=== PATIENT | female | born 1980 | race Caucasian/White ===

== ENCOUNTER 2020-12-04 10:47 | Emergency (ER) | payer BC ==
--- NOTE | 2020-12-04 11:18 | ERPHSYRPT ---
- History of Present Illness Time Seen by Provider: 12/04/20 11:18 Source: patient Exam Limitations: no limitations Physician History: This is a 40-year-old white female who has a history of vertigo and was at a vendor fair at 9 AM this morning. She began with some dizziness and then there was confusion and some slurred speech present. Slurred speech resolved but she presents to the emergency room with a headache and dizziness which is much less intense. Patient does see a neurologist in [facility] by the name of Dr. Lebron. An MRI of the brain with and without contrast was performed on 11/10/2020 and it was unremarkable. Patient denies chest pain. She denies shortness of breath. She denies nausea vomiting or diarrhea. She has never had this severe symptoms with her vertigo episodes. However, she does state that her episodes of vertigo have been increasing in frequency. Patient is not under any new stressors. She has no cough she has no shortness of breath. Her her slurred speech symptoms and confusion have resolved prior to arrival to the emergency department. Patient denies head injury Timing/Duration: today Severity: moderate Baseline/Normal Cognition: alert oriented x 3 Current Cognition: alert oriented x 3 Baseline Gait: walks w/o assistance Associated Symptoms: confusion, slurred speech, headache Allergies/Adverse Reactions: No Known Drug Allergies Allergy (Unverified 12/04/20 11:12) Home Medications: Multivitamin 1 tab PO DAILY 12/04/20 [History] Travel Risk - International Travel Have you traveled outside of the country in past 3 weeks: No - Coronavirus Screening Are you exhibiting any of the following symptoms?: No Close contact with a COVID-19 positive Pt in past 14-21 Days: No - Vaccine Status Have you recieved a Covid-19 vaccination: No - Review of Systems Constitutional: No Symptoms Eyes: No Symptoms Ears, Nose, & Throat: No Symptoms Respiratory: No Symptoms Cardiac: No Symptoms Abdominal/Gastrointestinal: No Symptoms Genitourinary Symptoms: No Symptoms Musculoskeletal: No Symptoms Skin: No Symptoms Neurological: Dizziness, Headache, Speech Changes Psychological: No Symptoms Endocrine: No Symptoms Hematologic/Lymphatic: No Symptoms Immunological/Allergic: No Symptoms All Other Systems: Reviewed and Negative - Past Medical History Pertinent Past Medical History: Yes Neurological History: Other (Recurrent vertigo) - Past Surgical History Past Surgical History: Yes - Nursing Vital Signs Nursing Vital Signs: Initial Vital Signs Temperature 98.0 F 12/04/20 11:15 Pulse Rate 78 12/04/20 11:15 Respiratory Rate 18 12/04/20 11:15 Blood Pressure 150/91 12/04/20 11:15 O2 Sat by Pulse Oximetry 100 12/04/20 11:15 Pain Scale Pain Intensity 4 - Wood Coma Scale Best Eye Response (Wood): (4) open spontaneously Best Verbal Response ([place]): (5) oriented Best Motor Response (Wood): (6) obeys commands Wood Total: 15 - Physical Exam General Appearance: no apparent distress, alert, anxiety Eye Exam: bilateral eye: normal inspection, PERRL, EOMI Ears, Nose, Throat Exam: normal ENT inspection, moist mucous membranes Neck Exam: normal inspection, non-tender, supple, full range of motion Respiratory: normal breath sounds, lungs clear, airway intact, No chest tenderness, No respiratory distress Cardiovascular: regular rate/rhythm, normal heart sounds, normal peripheral pulses Gastrointestinal: soft, normal bowel sounds, No tenderness Pelvic Exam: not done Rectal Exam: not done Back Exam: normal inspection, normal range of motion, No CVA tenderness, No vertebral tenderness Extremity Exam: normal inspection, normal range of motion, pelvis stable Mental Status: alert, oriented x 3, cooperative wall cleaner Exam: normal hearing, normal speech, PERRL, tongue midline Coordination/Gait: normal finger to nose, normal gait, normal cerebellar function Motor/Sensory: no motor deficit, no sensory deficit, no pronator drift Skin Exam: normal color, warm, dry SpO2 Interpretation: normal O2 Delivery: Room Air - Course Nursing assessment & vital signs reviewed: Yes EKG Interpreted by Me: RATE (79), Sinus Rhythm, NORMAL AXIS, NORMAL INTERVALS, NORMAL QRS, NORMAL ST-T, Other (No acute ischemic changes. No comparison EKG) Ordered Tests: Active Orders 24 hr Category Date Time Status Clean Catch Urine Specimen STAT Care 12/04/20 11:42 Active EKG-ER Only STAT Care 12/04/20 11:42 Active IV Insertion STAT Care 12/04/20 11:42 Active HEAD WITHOUT CONTRAST [CT] Stat Exams 12/04/20 11:42 Completed CBC W DIFF Stat Lab 12/04/20 11:42 Completed CMP Stat Lab 12/04/20 11:42 Completed CULTURE,URINE Stat Lab 12/04/20 11:45 Received MAGNESIUM Stat Lab 12/04/20 11:42 Completed UA W/RFX UR CULTURE Stat Lab 12/04/20 11:45 Completed Urine Triage Profile Stat Lab 12/04/20 11:45 Completed Medication Summary Discontinued Medications Generic Name Dose Route Start Last Admin Trade Name Jordan PRN Reason Stop Dose Admin Ceftriaxone Sodium/Dextrose 1 g in 50 mls @ 100 mls/hr 12/04/20 12:49 12/04/20 13:32 Rocephin 1 Gm-D5w 50 Ml Bag IV 12/04/20 13:18 Infused STAT STA Infusion Ceftriaxone Sodium/Dextrose Confirm 12/04/20 12:57 Rocephin 1 Gm-D5w 50 Ml Bag Administered 12/04/20 12:58 Dose 1 g in 50 mls @ ud IV .STK-MED ONE Ketorolac Tromethamine 30 mg 12/04/20 12:17 12/04/20 12:20 Toradol 30 Mg Injection IV 12/04/20 12:18 30 mg STAT ONE Administration Ketorolac Tromethamine Confirm 12/04/20 12:18 Toradol 30 Mg Injection Administered 12/04/20 12:19 Dose 30 mg .ROUTE .STK-MED ONE Potassium Chloride 10 meq 12/04/20 12:46 12/04/20 12:59 Klor Con 10 Meq PO 12/04/20 12:47 10 meq STAT ONE Administration Potassium Chloride Confirm 12/04/20 12:57 Klor Con 10 Meq Administered 12/04/20 12:58 Dose 10 meq PO .STK-MED ONE Lab/Rad Data: Laboratory Result Diagrams 12/04/20 11:42 12/04/20 11:42 Laboratory Results 12/04/20 12/04/20 12/04/20 Range/Units 11:45 11:45 11:42 WBC (4.0-10.5) K/mm3 RBC (4.1-5.4) M/mm3 Hgb (12.0-16.0) gm/dl Hct (35-47) % MCV (78-100) fl MCH (26-32) pg MCHC (32-36) g/dl RDW (11.5-14.0) % Plt Count (150-450) K/mm3 MPV (7.5-11.0) fl Gran % (36.0-66.0) % Eos # (Auto) (0-0.5) Absolute Lymphs (auto) (1.0-4.6) Absolute Monos (auto) (0.0-1.3) Lymphocytes % (24.0-44.0) % Monocytes % (0.0-12.0) % Eosinophils % (0.00-5.0) % Basophils % (0.0-0.4) % Absolute Granulocytes (1.4-6.9) Basophils # (0-0.4) Sodium 138 (137-145) mmol/L Potassium 3.1 L (3.5-5.1) mmol/L Chloride 101 (98-107) mmol/L Carbon Dioxide 26 (22-30) mmol/L Anion Gap 13.7 (5-15) MEQ/L BUN 15 (7-17) mg/dL Creatinine 0.76 (0.52-1.04) mg/dL Estimated GFR > 60.0 ML/MIN Glucose 103 (74-106) mg/dL Calcium 10.0 (8.4-10.2) mg/dL Magnesium 2.0 (1.6-2.3) mg/dL Total Bilirubin 0.40 (0.2-1.3) mg/dL AST 25 (14-36) U/L ALT 20 (0-35) U/L Alkaline Phosphatase 63 (38-126) U/L Serum Total Protein 7.9 (6.3-8.2) g/dL Albumin 5.0 (3.5-5.0) g/dL Urine Color YELLOW (YELLOW) Urine Appearance CLEAR (CLEAR) Urine pH 7.0 (5-6) Ur Specific [place] 1.009 (1.005-1.025) Urine Protein NEGATIVE (Negative) Urine Ketones NEGATIVE (NEGATIVE) Urine Blood SMALL (0-5) [place]/ul Urine Nitrite NEGATIVE (NEGATIVE) Urine Bilirubin NEGATIVE (NEGATIVE) Urine Urobilinogen NEGATIVE (0-1) mg/dL Ur Leukocyte Esterase MODERATE (NEGATIVE) Urine WBC (Auto) 6-10 (0-5) /HPF Urine RBC (Auto) 6-10 (0-2) /HPF U Epithel Cells (Auto) FEW (FEW) /HPF Urine Bacteria (Auto) RARE (NEGATIVE) /HPF Urine Culture Reflexed YES (NO) Urine Glucose NEGATIVE (NEGATIVE) mg/dL Urine Opiates Level NEGATIVE (NEGATIVE) Ur Methadone NEGATIVE (NEGATIVE) Urine Barbiturates NEGATIVE (NEGATIVE) Ur Phencyclidine (PCP) NEGATIVE (NEGATIVE) Urine Amphetamine NEGATIVE (NEGATIVE) U Benzodiazepine Level NEGATIVE (NEGATIVE) Urine Cocaine NEGATIVE (NEGATIVE) Urine Marijuana (THC) NEGATIVE (NEGATIVE) 12/04/20 Range/Units 11:42 WBC 9.2 (4.0-10.5) K/mm3 RBC 4.69 (4.1-5.4) M/mm3 Hgb 14.7 (12.0-16.0) gm/dl Hct 45.2 (35-47) % MCV 96.4 (78-100) fl MCH 31.3 (26-32) pg MCHC 32.5 (32-36) g/dl RDW 12.4 (11.5-14.0) % Plt Count 261 (150-450) K/mm3 MPV 11.2 H (7.5-11.0) fl Gran % 71.6 H (36.0-66.0) % Eos # (Auto) 0.03 (0-0.5) Absolute Lymphs (auto) 2.01 (1.0-4.6) Absolute Monos (auto) 0.53 (0.0-1.3) Lymphocytes % 21.9 L (24.0-44.0) % Monocytes % 5.8 (0.0-12.0) % Eosinophils % 0.3 (0.00-5.0) % Basophils % 0.4 (0.0-0.4) % Absolute Granulocytes 6.57 (1.4-6.9) Basophils # 0.04 (0-0.4) Sodium (137-145) mmol/L Potassium (3.5-5.1) mmol/L Chloride (98-107) mmol/L Carbon Dioxide (22-30) mmol/L Anion Gap (5-15) MEQ/L BUN (7-17) mg/dL Creatinine (0.52-1.04) mg/dL Estimated GFR ML/MIN Glucose (74-106) mg/dL Calcium (8.4-10.2) mg/dL Magnesium (1.6-2.3) mg/dL Total Bilirubin (0.2-1.3) mg/dL AST (14-36) U/L ALT (0-35) U/L Alkaline Phosphatase (38-126) U/L Serum Total Protein (6.3-8.2) g/dL Albumin (3.5-5.0) g/dL Urine Color (YELLOW) Urine Appearance (CLEAR) Urine pH (5-6) Ur Specific [place] (1.005-1.025) Urine Protein (Negative) Urine Ketones (NEGATIVE) Urine Blood (0-5) [place]/ul Urine Nitrite (NEGATIVE) Urine Bilirubin (NEGATIVE) Urine Urobilinogen (0-1) mg/dL Ur Leukocyte Esterase (NEGATIVE) Urine WBC (Auto) (0-5) /HPF Urine RBC (Auto) (0-2) /HPF U Epithel Cells (Auto) (FEW) /HPF Urine Bacteria (Auto) (NEGATIVE) /HPF Urine Culture Reflexed (NO) Urine Glucose (NEGATIVE) mg/dL Urine Opiates Level (NEGATIVE) Ur Methadone (NEGATIVE) Urine Barbiturates (NEGATIVE) Ur Phencyclidine (PCP) (NEGATIVE) Urine Amphetamine (NEGATIVE) U Benzodiazepine Level (NEGATIVE) Urine Cocaine (NEGATIVE) Urine Marijuana (THC) (NEGATIVE) - Progress Progress: improved Progress Note: 12/04/20 12:17 CAT scan of the head without contrast reveals no acute intracranial abnormality. 12/04/20 13:35 Medical decision making: This patient's symptoms have resolved in terms of headache and dizziness. I will be treating the patient's urinary tract infe ction. I will also send her home with a prescription for Cipro and Antivert. I spoke with Dr. Landeros who is a neurologist in [facility] who is covering for her neurologist Dr. Lebron. He had reviewed the patient's chart. I discussed with him the patient's history, complaints, symptoms, physical findings and results of radiographic studies and labs. He feels that the patient can be discharged to home. He feels that her vertigo symptoms may be migraine induced. He has no other recommendations. She is to call her neurologist on Monday to make arranges for follow-up appointment. Counseled pt/family regarding: lab results, diagnosis, need for follow-up - Departure Departure Disposition: Home Clinical Impression: Confusion, Urinary tract infection, Vertigo Condition: Stable Critical Care Time: No Referrals: MURALI,JIM F [ACTIVE STAFF] - Additional Instructions: Drink plenty of fluids. Take medication as prescribed. Follow-up with your primary care physician and neurologist for further management. Prescriptions: Meclizine HCl 25 mg [Antivert 25 mg] 25 mg PO Q8H PRN #10 tablet PRN Reason: Dizziness Ciprofloxacin [Cipro 500 MG] 500 mg PO BID #14 tablet
[2020-12-04 11:50] LABS: Absolute Neutrophil Ct (ANC) 6.57 (1.4-6.9); BASOPHIL % 0.4 % (0.0-0.4); Basophil (Absolute #) 0.04 (0-0.4); Eosinophil % 0.3 % (0.00-5.0); Eosinophil (Absolute #) 0.03 (0-0.5); Hematocrit 45.2 % (35-47); Hemoglobin 14.7 gm/dl (12.0-16.0); Lymphocyte (Absolute #) 2.01 (1.0-4.6); Lymphocytes % 21.9 % (24.0-44.0); Mean Cell Volume 96.4 fl (78-100); Mean Corpuscular Hemoglobin 31.3 pg (26-32); Mean Corpuscular Hgb Concent. 32.5 g/dl (32-36); Mean Platelet Volume 11.2 fl (7.5-11.0); Monocyte (Absolute #) 0.53 (0.0-1.3); Monocytes % 5.8 % (0.0-12.0); Neutrophil % 71.6 % (36.0-66.0); Platelet Count 261 K/mm3 (150-450); Red Blood Count 4.69 M/mm3 (4.1-5.4); Red Cell Distribution Width 12.4 % (11.5-14.0); White Blood Count 9.2 K/mm3 (4.0-10.5)
[2020-12-04 11:56] LABS: ALKALINE PHOSPHATASE 63 U/L (38-126); ANION GAP 13.7 MEQ/L (5-15); BLOOD UREA NITROGEN 15 mg/dL (7-17); CHLORIDE 101 mmol/L (98-107); Carbon Dioxide 26 mmol/L (22-30); Creatinine 1 0.76 mg/dL (0.52-1.04); EST GLOMERULAR FILTRATION RATE > 60.0 ML/MIN; Glucose 103 mg/dL (74-106); Potassium 3.1 mmol/L (3.5-5.1); SGOT/AST 25 U/L (14-36); SGPT/ALT 20 U/L (0-35); SODIUM 138 mmol/L (137-145); Total Protein 7.9 g/dL (6.3-8.2)
[2020-12-04 12:06] LABS: Appearance CLEAR (CLEAR); Bacteria RARE /HPF (NEGATIVE); Bilirubin NEGATIVE (NEGATIVE); Blood SMALL Ery/ul (0-5); Epithelial Cells FEW /HPF (FEW); Glucose NEGATIVE (NEGATIVE); Ketones NEGATIVE (NEGATIVE); Leukocyte Esterase MODERATE (NEGATIVE); Nitrite NEGATIVE (NEGATIVE); Protein,Urine Dip NEGATIVE (Negative); Specific Gravity 1.009 (1.005-1.025); Urobilinogen NEGATIVE mg/dL (0-1)
[2020-12-04 12:07] VITALS: O2SAT 99
[2020-12-04 12:09] LABS: Amphetamine,Urine NEGATIVE (NEGATIVE); Barbiturate,Urine NEGATIVE (NEGATIVE); Benzodiazepine,Urine NEGATIVE (NEGATIVE); Cocaine,Urine NEGATIVE (NEGATIVE); Methadone,Urine NEGATIVE (NEGATIVE); Opiate,Urine NEGATIVE (NEGATIVE); PCP,Urine NEGATIVE (NEGATIVE); THC,Urine NEGATIVE (NEGATIVE)
--- NOTE | 2020-12-04 12:10 | XRAY ---
Indication: Headache, dizziness, confusion. History of migraines and vertigo. Multiple contiguous images obtained through the head without contrast. Comparison: None Normal appearing brain parenchyma, ventricles, and bony calvarium. Visualized paranasal sinuses and mastoid air cells are clear. Impression: Normal CT head without contrast exam.
[2020-12-04] MEDS ORDERED: TORAdol 30 mg Injection IV ONE (12:17)
[2020-12-04] MEDS ORDERED: TORAdol 30 mg Injection ONE (12:18)
[2020-12-04] MEDS ORDERED: Klor Con 10 MEQ PO ONE ×2 (12:46→12:57)
[2020-12-04] MEDS ORDERED: ROCEPHIN 1 Gm-D5w 50 ml Bag** 1 G/50 ML IVPB IV STA (12:49)
[2020-12-04] MEDS ORDERED: ROCEPHIN 1 Gm-D5w 50 ml Bag** 1 G/50 ML IVPB IV ONE (12:57)
[2020-12-04 13:47] VITALS: PULSE 64
[2020-12-04 13:50] VITALS: BP 121/77
== END 2020-12-04 13:58 | disposition home or self-care (01) ==
LOC: ED 10:47
DX: R51.9 Headache, unspecified (principal); N39.0 Urinary tract infection, site not specified; R42 Dizziness and giddiness
CPT/HCPCS: 36000; 36415; 70450; 80053; 80307; 81001; 83735; 85025; 87086; 93005; 96374; 99284; J0696; J1885; A9270-GY